=== PATIENT | female | born 1995 | race African-American/Black ===

== ENCOUNTER 2022-09-01 09:45 | Outpatient (CLI) | payer BC, SELFPAY ==
--- NOTE | ~2022-09-01 | US_ITS ---
Pelvic ultrasound. Clinical History: IUD placement Technique: Realtime transabdominal and transvaginal scanning of the pelvis was performed. Color flow Doppler and Doppler spectral analysis were performed. Findings: The uterus is retroverted. The endometrial stripe has a thickness of 5 mm. IUD in satisfac tory position. No focal mass is identified. The right ovary measures 3.2 x 1.8 x 1.9 cm. No significant right ovarian or adnexal mass is seen. The left ovary measures 2.9 x 2.2 x 3.2 cm. No significant left ovarian or adnexal mass is seen. Vascular flow present in both ovaries on Doppler spectral analysis. There is no evidence of free fluid in the cul de sac. Impression: IUD in satisfactory position. Reviewed, dictated and finalized at [facility]. [employer] CLEANER Impression: IUD in satisfactory position.
== END 2022-09-01 09:46 ==
LOC: MICIMG 09:46
PROVIDERS: Visit Provider Student in an Organized Health Care Education/Training Program
DX: Z30.431 Encounter for routine checking of intrauterine contraceptive device (principal)
CPT/HCPCS: 76830; 76856

== ENCOUNTER 2024-08-08 15:38 | Outpatient (CLI) | payer BC, SELFPAY ==
--- NOTE | ~2024-08-08 | US_ITS ---
EXAMINATION: US OB <=14 wk fetus w TV DATE: 08/08/2024 16:56 INDICATION: Amenorrhea, unspecified. TECHNIQUE: Real-time transabdominal and transvaginal pelvic ultrasound was performed. COMPARISON: None. FINDINGS: TRANSABDOMINAL ULTRASOUND: The uterus measures 11.1 x 5.0 x 6.8 cm. TRANSVAGINAL ULTRASOUND: There is an intrauterine gestational sac. A yolk sac is identified. The fet al crown rump length measures 3.3 cm, which correlates with an estimated gestational age of 10 weeks and 1 day(s) (+/-) 6 day(s). heart motion is identified measuring 165 beats per minute (bpm) by M-mode Doppler. The right ovary measures 3.2 x 1.2 x 1.7 cm. The left ovary measures 3.6 x 2.1 x 2.4 cm. There is no free fluid in the pelvis. IMPRESSION: 1. Single living intrauterine gestation with estimated date of delivery of 03/05/2025. Reviewed, dictated and finalized at location A. JOCKEY IMPRESSION: 1. Single living intrauterine gestation with estimated date of delivery of 02/12.
== END 2024-08-08 15:39 | disposition home or self-care (01) ==
LOC: ANHIMG 15:46
PROVIDERS: Visit Provider Nurse Practitioner Obstetrics & Gynecology
DX: N91.2 Amenorrhea, unspecified (principal)
CPT/HCPCS: 76801; 76817

== ENCOUNTER 2025-02-23 08:02 | Outpatient (RCR) | payer BC, SELFPAY ==
[2025-02-15 12:45] VITALS: BP 114/53; PULSE 61
[2025-02-17 09:10] VITALS: BP 112/58; PULSE 77
[2025-02-20 16:14] VITALS: BP 120/67; PULSE 76
--- NOTE | ~2025-02-23 | US_ITS ---
EXAMINATION: US OB limited DATE: 02/20/2025 15:46 INDICATION: Decreased movements. Large for gestational age. TECHNIQUE: Real-time ultrasound of the pelvis was performed. The interpreting radiologist was not pre sent for the study. COMPARISON: None. FINDINGS: There is a single living fetus in breech presentation. The placenta is fundal and not low-lying. Fet al heart rate is 136 beats per minute (bpm). The amniotic fluid index is 6.8 cm, which is below jerilyn l range (5th%-95%: 7.5-24.4 cm at 37 weeks estimated gestational age). IMPRESSION: 1. Single living fetus in breech presentation with heart rate of 136 bpm. 2. No hydronephrosis with decreased amniotic fluid index of 6.8 cm. Reviewed, dictated and finalized at location A. IMPRESSION: 1. Single living fetus in breech presentation with heart rate of 136 bpm . 2. No hydronephrosis with decreased amniotic fluid index of 6.8 cm.
--- NOTE | ~2025-02-23 | US_ITS ---
EXAMINATION: US OB BPP wo non-stress DATE: 02/17/2025 10:06 INDICATION: Bradycardia TECHNIQUE: Real-time pelvic ultrasound was performed. The interpreting radiologist was not present fo r the study. COMPARISON: None. FINDINGS: There is a single living fetus in breech presentation. The placenta is left fundal and not low-lying . heart rate is 134 beats per minute (bpm). Amniotic fluid index of 5.4 cm which is below jerilyn l range (5th%-95%: 7.5-24.4 cm at 37 weeks estimated gestational age). Biophysical profile performed by the technologist: breathing (30 sec sustained breathing in 30 minutes): 2 out of 2 movement (3 gross body movements in 30 minutes): 2 out of 2 tone (one episode of lbabztu-rmtixdxmk-dtycksf limb movement): 2 out of 2 Amniotic fluid pocket (2 cm): 2 out of 2 Total score: 8 out of 8 IMPRESSION: 1. Single living fetus in breech presentation with heart rate of 134 bpm. 2. Biophysical profile 8 out of 8. 3. Oligohydramnios with decreased amniotic fluid index of 5.4 cm. Reviewed, dictated and finalized at location A.
--- NOTE | ~2025-02-23 | US_ITS ---
EXAMINATION: US OB BPP wo non-stress DATE: 02/15/2025 13:46 CDT INDICATION: Decreased movements TECHNIQUE: Real-time transabdominal obstetric ultrasound. FINDINGS: Comparison to ultrasound dated 08/08/2020 There is a single living fetus in breech presentation. The placenta is fundal without placenta previ a. cardiac activity and movement is noted with a heart rate of 123 beats per minute. Biophysical profile: breathin of 2 movement: 2 of 2 tone: 2 of 2 Amniotic flud pocket: 2 of 2 Total score: 6 of 8 IMPRESSION: 1. Single living intrauterine in vertex presentation. 2: Total biophysical profile score of 6/8. Reviewed, dictated and finalized at location A.
--- NOTE | ~2025-02-23 | US_ITS ---
EXAMINATION: US OB limited DATE: 02/23/2025 09:08 INDICATION: Oligohydramnios. Assess amniotic fluid index. TECHNIQUE: Real-time ultrasound of the pelvis was performed. The interpreting radiologist was not pre sent for the study. COMPARISON: None. FINDINGS: There is a single living fetus in breech presentation. The placenta is fundal. heart rate is 1 32 beats per minute (bpm). The amniotic fluid index is 7.3 cm, which is normal (5th%-95%: 7.5-24.4 cm at 37 weeks estimated gestational age). IMPRESSION: 1. Single living fetus in breech presentation with heart rate of 132 bpm. 2. Normal amniotic fluid index of 7.3 cm. Reviewed, dictated and finalized at location A. IMPRESSION: 1. Single living fetus in breech presentation with heart rate of 132 bpm . 2. Normal amniotic fluid index of 7.3 cm.
[2025-02-23 09:48] VITALS: BP 116/67; PULSE 79
== END 2025-03-17 09:51 | disposition other institution (70) ==
LOC: ANHOBOP 08:02
PROVIDERS: Visit Provider Obstetrics & Gynecology
DX: O36.8130 Decreased fetal movements, third trimester, not applicable or unspecified (principal); Z3A.36 36 weeks gestation of pregnancy
CPT/HCPCS: 59025; 76815; 76819

== ENCOUNTER 2025-03-07 05:27 | Inpatient (IN) | payer BC, SELFPAY ==
[2025-03-07] VITALS (61 sets, daily range): BP systolic 82–126; BP diastolic 52–83; PULSE 46–92; RESP 14–18; TEMP 36.4–36.5; O2SAT 97–100; BMI 37.8
[2025-03-07] MEDS: LACTATED RINGERS 1,000 ML 125 ML IV CONT ×2 (05:47→06:50)
[2025-03-07] MEDS: ACETAMINOPHEN 500 MG TABLET 1000 MG PO ×2 (05:52→18:54)
--- NOTE | 2025-03-07 05:57 | LDADM ---
This patient, Harvey Levine, was admitted to Labor/Delivery/Recovery 120 on 03/07/25 at 05:27. Plans for labor, pain management and were discussed with patient. Patient/family oriented to hospital policies and general routines including ID bracelet, bed and alarms, visiting hours, pain management, procedures, bathroom and other care routines, personal items, smoking policy, room service/diet and guest tray routines, infant security routines, and visiting hours. Patient/Family are encouraged to report perceived risks to care and to ask questions if they do not understand what they are told or what they should do. See OBIX for further documentation.
[2025-03-07 06:00] LABS: Basophils Absolute Auto 0.1 K/mm3 (0.0-0.1); Basophils Percent Auto 0.9 % (0.2-1.2); Eosinophils Absolute Auto 0.2 K/mm3 (0-0.3); Eosinophils Percent Auto 3.2 % (0-4.4); Hemoglobin 10.9 g/dL (12.0-15.0); Immature Granulocyte Absolute 0.03 K/mm3 (0.00-0.031); Immature Granulocyte Percent A 0.4 % (0-0.5); Lymphocytes Absolute Auto 1.75 K/mm3 (0.9-3.2); Lymphocytes Percent Auto 25.1 % (18.3-44.2); Mean Corpuscular Hemoglobin 27.6 pg (26-34); Mean Corpuscular Volume 83.5 fl (80-100); Mean Platelet Volume 11.7 fl (7.4-10.4); Monocytes Absolute Auto 0.8 K/mm3 (0.1-0.6); Monocytes Percent Auto 11.3 % (2.6-8.5); Neutrophils Absolute Auto 4.1 K/mm3 (1.3-6.7); Neutrophils Percent Auto 59.1 % (45.5-73.1); Platelet Count Result 200 k/mm3 (150-375); Red Blood Count 3.95 M/mm3 (4.2-5.4); Red Cell Distribution Width 15.2 % (11.5-14.5)
[2025-03-07 06:45] LABS: Syphilis IgG/IgM Antibody Non-Reactive (Nonreactive)
[2025-03-07 06:54] LABS: HIV 1/2 Ab P24 Ag Result Negative (Negative)
--- NOTE | 2025-03-07 07:04 | P.PNAN_ITS ---
Anes - Initial Pre Proc Eval Procedure: Operation Date: 03/07/25 07:30 Proposed Procedures p Repeat Section - Jose Jurado MD Date/Time: 03/07/25 07:04 Surgeon: Jose Jurado MD Pre Op Diagnosis: Patient Data Age: 30 Gender: F Height: 1.55 m Weight: 90.9 kg Last Vital Signs Temp 36.5 C 03/07/25 06:00 Pulse 69 03/07/25 07:01 BP 108/59 L 03/07/25 07:01 Pulse Ox 99 03/07/25 07:01 O2 Del Method Room Air 03/07/25 05:57 Allergies Allergy/AdvReac Type Severity Reaction Status Date / Time No Known Allergies Allergy Verified 02/28/25 14:55 Home Medications ?Medication ?Instructions ?Recorded ?Confirmed ?Type vitamin#30 30 mg iron-10 1 cap PO DAILY 07/28/24 03/07/25 History mg iron-folic acid 1 mg-omg3 capsule aspirin 81 mg tablet,delayed 81 mg PO DAILY 11/03/24 03/07/25 History release (Adult Low Dose Aspirin) ferrous sulfate 325 mg (65 mg 325 mg PO DAILY 02/20/25 03/07/25 History iron) tablet Laboratory Tests 03/07/25 05:53 WBC 7.0 K/mm3 (4.5-10.0) RBC 3.95 L M/mm3 (4.2-5.4) Hgb 10.9 L g/dL (12.0-15.0) Hct 33.0 L % (37.0-47.0) MCV 83.5 fl (80-100) MCH 27.6 pg (26-34) MCHC 33.0 g/dl (32-36) RDW 15.2 H % (11.5-14.5) Plt Count 200 k/mm3 (150-375) MPV 11.7 H fl (7.4-10.4) Immature Gran % (Auto) 0.4 % (0-0.5) Neut % (Auto) 59.1 % (45.5-73.1) Lymph % (Auto) 25.1 % (18.3-44.2) Towns % (Auto) 11.3 H % (2.6-8.5) Eos % (Auto) 3.2 % (0-4.4) Baso % (Auto) 0.9 % (0.2-1.2) Lymph # (Auto) 1.75 K/mm3 (0.9-3.2) Towns # (Auto) 0.8 H K/mm3 (0.1-0.6) Eos # (Auto) 0.2 K/mm3 (0-0.3) Baso # (Auto) 0.1 K/mm3 (0.0-0.1) Abs Immat Gran (auto) 0.03 K/mm3 (0.00-0.031) Absolute Neuts (auto) 4.1 K/mm3 (1.3-6.7) Absolute Nucleated RBC 0.000 K/mm3 (0.0-0.012) Nucleated RBC % 0.0 % (0.0-0.2) Syphilis IgG/IgM Ab Non-reactive (Nonreactive) HIV 1&2 Ab/P24 Ag 4thGn Negative (Negative) Blood Type B Positive Antibody Screen Negative Patient hx anesthesia problems: none Family hx anesthesia problems: none Results Review: All pre-operative results and documents have been reviewed as part of the pre- operative evaluation. [facility] Past Medical History Medical History Encounter for Routine Gynecological Examination History of vaginal after Hypertensive disorder Surgical History Surgical History History of section History of appendectomy Family History Family History Grandparent Malignant neoplasm of prostate Social History Social History Smoking status: Never smoker Second hand tobacco smoke exposure: No Alcohol intake: never Substance use: never Substance use type: does not use Do You Feel Safe in your Home?: Yes Lack of Transportation: No Lack of Food: Never True Current Housing: I Have Housing Concerned About Future Housing: No Difficulty Paying Gas/Electric Bills: No Difficulty Paying for Meds: No Currently Unemployed: No Education: Bachelor's Degree Difficulty w/ Childcare or Family Care: No Spiritual care concerns: No Anes - Eval Final PreProcedure Day of Procedure 03/07/25 07:04 Patient weight: obese Heart: regular rate and rhythm Lungs: clear to auscultation and normal air movement Airway: Mallampati scale class II Neurological: alert and oriented Last oral intake: >/= 8 hours ASA classification: II Emergent: no Anesthetic plan: proceed Anesthesia type and monitoring: regional spinal and standard monitoring Results Review: All pre-operative results and documents have been reviewed as part of the pre- operative evaluation. Informed Consent: The patient's anesthetic plan and its attendant risks and benefits were discussed with the patient/family/POA. Questions were solicited and answers provided to the satisfaction of the patient/family/POA.
[2025-03-07] MEDS: ONDANSETRON INJ 4 MG/2 ML VIAL IV PUSH (07:14)
[2025-03-07] MEDS: FAMOTIDINE 20 MG/2 ML VIAL IV PUSH (07:14)
[2025-03-07] MEDS: ceFAZolin 2 GM/D5W 50 ML 2 GM/50 ML BAG IVPB (07:15)
--- NOTE | 2025-03-07 08:01 | P.HP_ITS ---
H&P: HPI History of Present Illness Date/Time: 03/07/25 08:01 Chief Complaint: Repeat section Narrative: 30 y/o at 39 4/7 admitted for scheduled repeat section. PNC significant for persistent breech presentation. Ultrasound at bedside today confirmed breech. Also LGA. Review of Systems Review of Systems: All systems reviewed & are unremarkable except as noted in HPI and below Constitutional: Constitutional: Reports no additional constitutional complai nts and Denies headache(s) Eyes: Eyes: Denies spots in vision ENT: Reports system reviewed and no additional complaints, except as documented and Denies headache(s) Cardiovascular: Cardiovascular: Denies chest pain and Denies dyspnea Respiratory: Respiratory: Denies dyspnea Gastrointestinal: Gastrointestinal: Reports no additional gastrointestinal complaints Genitourinary: Genitourinary: Reports amenorrhea Musculoskeletal: Musculoskeletal: Reports no additional musculoskeletal complaints Integumentary/Breasts: Skin/Breast: Denies breast mass and Denies rash Neurologic: Denies headache(s) Psychiatric: Psychiatric: Reports no additional psychiatric complaints PMFSH Past Medical History Medical History Encounter for Routine Gynecological Examination History of vaginal after Hypertensive disorder Surgical History Surgical History History of section History of appendectomy Family History Family History Grandparent Malignant neoplasm of prostate Social History Social History Smoking status: Never smoker Second hand tobacco smoke exposure: No Alcohol intake: never Substance use: never Substance use type: does not use Do You Feel Safe in your Home?: Yes Lack of Transportation: No Lack of Food: Never True Current Housing: I Have Housing Concerned About Future Housing: No Difficulty Paying Gas/Electric Bills: No Difficulty Paying for Meds: No Currently Unemployed: No Education: Bachelor's Degree Difficulty w/ Childcare or Family Care: No Spiritual care concerns: No Meds Home Medications and Allergies Home Medications ?Medication ?Instructions ?Recorded ?Confirmed ?Type vitamin#30 30 mg iron-10 1 cap PO DAILY 07/28/24 03/07/25 History mg iron-folic acid 1 mg-omg3 capsule aspirin 81 mg tablet,delayed 81 mg PO DAILY 11/03/24 03/07/25 History release (Adult Low Dose Aspirin) ferrous sulfate 325 mg (65 mg 325 mg PO DAILY 02/20/25 03/07/25 History iron) tablet Allergies Allergy/AdvReac Type Severity Reaction Status Date / Time No Known Allergies Allergy Verified 02/28/25 14:55 Vital Signs Vital Signs - 24 hr 03/07/25 05:56 03/07/25 05:57 03/07/25 06:00 Temperature 97.7 F Pulse Rate 71 68 Blood Pressure 119/60 115/71 Pulse Oximetry 99 Oxygen Delivery Room Air 03/07/25 06:01 03/07/25 06:06 03/07/25 06:07 Temperature Pulse Rate Blood Pressure Pulse Oximetry 99 99 98 Oxygen Delivery 03/07/25 06:12 03/07/25 06:16 03/07/25 06:17 Temperature Pulse Rate 71 Blood Pressure 119/63 Pulse Oximetry 99 99 Oxygen Delivery 03/07/25 06:22 03/07/25 06:27 03/07/25 06:30 Temperature Pulse Rate 63 Blood Pressure 121/72 Pulse Oximetry 100 99 Oxygen Delivery 03/07/25 06:32 03/07/25 06:46 03/07/25 06:51 Temperature Pulse Rate Blood Pressure Pulse Oximetry 99 100 99 Oxygen Delivery 03/07/25 06:56 03/07/25 07:01 03/07/25 07:06 Temperature Pulse Rate 69 Blood Pressure 108/59 L Pulse Oximetry 99 99 99 Oxygen Delivery 03/07/25 07:11 03/07/25 07:16 03/07/25 07:21 Temperature Pulse Rate Blood Pressure Pulse Oximetry 99 100 99 Oxygen Delivery 03/07/25 07:26 03/07/25 07:30 03/07/25 07:31 Temperature Pulse Rate 73 Blood Pressure 114/63 Pulse Oximetry 99 99 Oxygen Delivery 03/07/25 07:36 Temperature Pulse Rate Blood Pressure Pulse Oximetry 99 Oxygen Delivery Exam Const: General: no acute distress Eyes: General: appearance normal, both eyes and all related structures Resp: Effort & Inspection: normal respiratory effort Cardio: Rate: regular rate GI: Other: Gravid no fundal tenderness no right upper quadrant pain Skin: General skin exam: no rashes or lesions noted Neuro: Cognition (Neuro): normal cognition Extrem: General: normal to inspection Psych: Mental Status: mental status grossly normal H&P: Results Labs Labs: Short CBC 03/07/25 Range/Units 05:53 WBC 7.0 (4.5-10.0) K/mm3 Hgb 10.9 L (12.0-15.0) g/dL Hct 33.0 L (37.0-47.0) % Plt Count 200 (150-375) k/mm3 Assessment and Plan Assessment and plan (1) Previous section: Code(s): Z98.891 - History of uterine scar from previous surgery Status: Acute Assessment and Plan: She has been counseled regarding risk benefit of repeat section for breech with prior . Questions have been answered. She agrees with repeat section. (2) Breech presentation: Code(s): O32.1XX0 - Maternal care for breech presentation, not applicable or unspecified Status: Acute
--- NOTE | 2025-03-07 08:01 | WPDHPUPDATE1 ---
History and Physical Update Update Date/Time: 03/07/25 08:01 History and Physical has been reviewed, including an updated exam of the patient. There are NO changes in the patient's condition. Risks, benefits, and alternatives have been discussed and questions answered. Patient agrees to proceed with procedure.
[2025-03-07] MEDS: OXYTOCIN 30 UNITS/NS 500 ML 30 UNITS/500 ML BAG 125 UNITS IV CONT (11:30)
--- NOTE | 2025-03-07 12:10 | OBPPTRN ---
Patient transferred to post room # 290 via stretcher. Support person present. Oriented to unit, room, information board, rooming in, admission packet and security measures. Patient verbalizes understanding.
[2025-03-07] MEDS: KETOROLAC 15 MG/ML VIAL (*BKC) IV PUSH ×2 (12:52→18:54)
[2025-03-07] MEDS: SIMETHICONE 80 MG TAB.CHEW PO ×2 (12:53→16:40)
[2025-03-07] MEDS: ACETAMINOPHEN 500 MG TABLET 1000 MG (12:54)
[2025-03-07 15:12] LABS: Alanine Aminotransferase 22 U/L (6-35); Albumin Level 3.7 g/dL (3.5-5.1); Alkaline Phosphatase 233 U/L (38-126); Anion Gap 9 mmol/L (4-12); Aspartate Amino Transferase 28 U/L (14-36); Bilirubin,Total 0.3 mg/dL (0.2-1.3); Blood Urea Nitrogen 6 mg/dL (7-17); Calcium 9.2 mg/dL (8.4-10.2); Carbon Dioxide 19 mmol/L (22-30); Chloride 107 mmol/L (98-107); Estimated CRCL calculation 112 ml/min; Estimated Glomerular Filt Rate > 60; Glucose 87 mg/dL (65-110); Potassium 4.1 mmol/L (3.4-5.0); Sodium 135 mmol/L (137-145); Total Protein 7.6 g/dL (6.3-8.2)
[2025-03-07 15:45] LABS: Rubella IgG Antibody 30.4 IU/ML
--- NOTE | 2025-03-07 16:06 | P.PCNOB_ITS ---
OB - Delivery Note Procedure Delivery date: 03/07/25 Pre-op diagnosis: Breech Presentation and Previous Delivery Post-op Diagnosis: Same Delivery monitor: External FHT Prior to decision for section, ACOG/SMFM labor guidelines were considered and discussed with the patient and staff. Decision made to proceed with the section.: Yes Procedure Performed: Repeat Surgeon: Jose Jurado MD Anesthesia type: Spinal Description of Procedure/Findings: Nicho breech position male , meconium-stained fluid, terminal meconium. Normal uterus fallopian tubes and ovaries. After informed consent, risks and benefits of the procedure was discussed with the patient. The patient was taken to the operating room where she was placed in the dorsal lithotomy position with leftward tilt. Spinal anesthesia was initiated and found to be adequate, she was then prepped and draped in the usual sterile fashion. A Pfannenstiel skin incision was made along prior scar with a scalpel and carried through to the underlying layer of fascia. The fascia was then nicked in the midline, extending bilaterally. The fascia was dissected off the rectus muscles bluntly and sharply, superiorly and inferiorly. The rectus muscles were in the midline, and peritoneum was identified and entered bluntly. The pelvic organs were visualized. The bladder blade was then inserted. The vesicouterine peritoneum was identified and noted to be well below the incision area. The low transverse uterine incision was then made with the scalpel , amniotic sac was entered meconium fluid noted, the incision was then extended with bilateral index fingers in a crescent-shaped fashion. The buttocks was delivered, terminal meconium noted, the legs were flexed and delivered, flexed and delivered, and the head was delivered in a flexed position. The nose and mouth suctioned. The cord was clamped twice and cut. The infant was then handed off to the awaiting pediatric staff. The placenta was then delivered manually. The uterine cavity was sponge curretted. The uterus was then exteriorized. The uterine incision was then closed with 0 vicryl in a running locked fashion. A figure of eight of 0 vicryl at the right of incision was used for hemostasis. Hemostasis noted. A second layer of [id number] of 0 vicryl was used. hemostasis noted. The posterior cul-de-sac was irrigated debris was removed. The uterus was then returned to the abdomen. Bilateral gutters were cleared off all clots and debris. The uterine incision was noted to be hemostatic. Interceed placed on uterine incision and vertically on front of uterus. The muscle bellies were inspected and noted to be hemostatic. The subfascial layer was noted to be hemostatic, and the fascia was closed with 0 Vicryl x2 in a running fashion. The subcutaneous layer was then Approximated with 3-0 Vicryl in a subcutaneous fashion. The skin was closed with 4-0 Vicryl in a subcuticular fashion with a Keif needle. Skin dermabond applied at incision. All instruments, needle, and lap counts were correct x3. The patient was taken to the recovery room in stable condition. Specimen: No Estimated Blood Loss: 580 Drains: No Packing: No Pathology: None sent Complications: No immediate complications Condition: Stable Disposition: Floor [place] Baby Date of : 03/07/25 Time of : 08:32 Gestational Age by Date: 39 Infant gender: Male Weight (pounds): 7 Weight (ounces): 10 presentation: nicho breech Placenta delivery description: Manual Removal Cord Vessel Description: 3 Vessels
[2025-03-07] MEDS: POLYSACCHARIDE IRON COMPLEX 150 MG CAPSULE PO (16:40)
[2025-03-07] MEDS: DOCUSATE SODIUM 100 MG CAPSULE PO (16:40)
[2025-03-07] MEDS: DEXTROSE 5%/0.45% SOD CHL 1,000 ML 125 ML IV CONT (16:41)
--- NOTE | 2025-03-07 17:20 | PC.NURSE ---
Breast pump provided due to in level 2 nursery. Instructions given on cleaning, care, usage, that there should be no pain, pumping schedule for milk production, collection, and storage of human milk. Patient was assessed for correct placement, flange size, to pump for comfort and nipple stretching/stimulation for adequate milk production every 3 hours (8 times in 24 hours) 1-2 times at night. Parents are encouraged to record the pumping schedule on the feeding sheet.?Mother voiced understanding of the education shared along with mom/baby guide and the pump measurement, flange fit handout for additional resource information. Reported to the Primary RN.
[2025-03-08] VITALS: BP 135/53; PULSE 68; RESP 16; TEMP 36.5; O2SAT 100
[2025-03-08] MEDS: ACETAMINOPHEN 500 MG TABLET 1000 MG PO ×4 (00:59→19:42)
[2025-03-08] MEDS: KETOROLAC 15 MG/ML VIAL (*BKC) IV PUSH ×2 (00:59→07:40)
[2025-03-08] MEDS: LACTATED RINGERS 1,000 ML 125 ML IV CONT (01:06)
[2025-03-08 04:00] VITALS: BP 109/51; PULSE 72; RESP 18; TEMP 36.6; O2SAT 100
[2025-03-08 05:36] LABS: Basophils Percent Auto 0.5 % (0.2-1.2); Eosinophils Absolute Auto 0.2 K/mm3 (0-0.3); Eosinophils Percent Auto 2.5 % (0-4.4); Hemoglobin 9.1 g/dL (12.0-15.0); Immature Granulocyte Absolute 0.03 K/mm3 (0.00-0.031); Immature Granulocyte Percent A 0.5 % (0-0.5); Lymphocytes Absolute Auto 1.08 K/mm3 (0.9-3.2); Lymphocytes Percent Auto 16.6 % (18.3-44.2); Mean Corpuscular HGB Conc 32.5 g/dl (32-36); Mean Corpuscular Hemoglobin 27.7 pg (26-34); Mean Corpuscular Volume 85.1 fl (80-100); Mean Platelet Volume 12.4 fl (7.4-10.4); Monocytes Absolute Auto 0.6 K/mm3 (0.1-0.6); Monocytes Percent Auto 9.1 % (2.6-8.5); Neutrophils Absolute Auto 4.6 K/mm3 (1.3-6.7); Neutrophils Percent Auto 70.8 % (45.5-73.1); Platelet Count Result 161 k/mm3 (150-375); Red Blood Count 3.29 M/mm3 (4.2-5.4); Red Cell Distribution Width 15.5 % (11.5-14.5); White Blood Count 6.5 K/mm3 (4.5-10.0)
[2025-03-08] MEDS: MULTIVIT/MIN/PREN/FOL AC/IRON TABLET 1 TAB PO (07:39)
[2025-03-08] MEDS: DOCUSATE SODIUM 100 MG CAPSULE PO ×2 (07:40→19:43)
[2025-03-08] MEDS: SIMETHICONE 80 MG TAB.CHEW PO ×3 (07:40→19:43)
[2025-03-08] MEDS: POLYSACCHARIDE IRON COMPLEX 150 MG CAPSULE PO ×2 (07:40→19:42)
[2025-03-08 08:55] VITALS: BP 124/70; PULSE 66; RESP 18; TEMP 36.6; O2SAT 100
[2025-03-08] MEDS: IBUPROFEN 600 MG TABLET PO ×2 (13:25→19:42)
--- NOTE | 2025-03-08 13:43 | PC.NURSE ---
Pt out at this time to visit at [facility] to visit for 6 hour pass.
--- NOTE | 2025-03-08 14:03 | WPDANLDPN2 ---
Anes-Prog Note L&D Date/Time: 03/08/25 14:03 Comfortable throughout: section Neuraxial method: spinal Epidural/Spinal procedure site: clean & non-tender Neuro status: Neuro function grossly intact. Cardiovascular status: normal Respiratory status: normal Airway patency: baseline Mental status: baseline Post-Op hydration status: normal Vital Signs: Last Vital Signs Temp 97.8 F 03/08/25 08:55 Pulse 66 03/08/25 08:55 Resp 18 03/08/25 08:55 BP 124/70 03/08/25 08:55 Pulse Ox 100 03/08/25 08:55 O2 Del Method Room Air 03/07/25 05:57 Pain score (VAS): 0/10 I/O: Intake & Output 03/07/25 03/08/25 03/08/25 23:59 07:59 15:59 Intake Total 400 1100 240 Output Total 300 2000 Balance 100 -900 240 Post-procedural complaints: none Patient feedback: Patient satisfied with anesthetic care.
--- NOTE | 2025-03-08 14:03 | WPDANLDNPN2 ---
Anes-Prog Note L&D-Neuraxial Date/Time: 03/08/25 14:03 Neuraxial medications: intrathecal PF morphine Opiod-related complaints: none Patient feedback: Patient satisfied with post-operative pain management.
[2025-03-08 20:00] VITALS: BP 127/72; PULSE 82; RESP 18; TEMP 36.7; O2SAT 99
[2025-03-09] MEDS: ACETAMINOPHEN 500 MG TABLET 1000 MG PO ×2 (01:36→08:06)
[2025-03-09] MEDS: IBUPROFEN 600 MG TABLET PO ×2 (01:36→08:07)
[2025-03-09 07:30] VITALS: BP 116/48; PULSE 63; RESP 16; TEMP 36.9; O2SAT 98
[2025-03-09] MEDS: TETANUS,DIPHTHERIA,AC PERTUSSIS ADULT (0.5 ML) BOOSTRIX IM (08:03)
[2025-03-09] MEDS: POLYSACCHARIDE IRON COMPLEX 150 MG CAPSULE PO (08:07)
[2025-03-09] MEDS: DOCUSATE SODIUM 100 MG CAPSULE PO (08:08)
[2025-03-09] MEDS: SIMETHICONE 80 MG TAB.CHEW PO (08:08)
[2025-03-09] MEDS: MULTIVIT/MIN/PREN/FOL AC/IRON TABLET 1 TAB PO (08:08)
--- NOTE | 2025-03-09 08:50 | P.PNOB_ITS ---
OB - PN: Subj Subjective Date/time seen: 03/08/25 08:15 Interval history: Pain controlled, lochia decreasing this am, tolerated regular diet, positive flatus, ambulating well, denies leg pain. OB - PN: Obj Data Labs 03/08/25 04:40 03/07/25 05:53 OB - PN A/P Assessment and Plan (1) Delivery by section: Status: Acute Assessment and Plan: POD1. Doing well. Baby transferred to [facility] doing well. Offered pass. Routine post op care. Plan Plan: routine care Time Spent With Patient Time: Total time spent is greater than 50% in coordination of care (as documented) at patient's floor/unit and/or counseling patient: Exam 2 Const: General: comfortable and no acute distress Resp: Effort & Inspection: normal respiratory effort : Other: dressing removed, incision intact no drainage Neuro: General: patient oriented x3 Extrem: General: normal to inspection, no calf tenderness and no edema Psych: Mental Status: mental status grossly normal
--- NOTE | 2025-03-09 08:53 | P.PNOB_ITS ---
OB - PN: Subj Subjective Date/time seen: 03/09/25 08:53 Interval history: Doing well, no complaints, did fine on pass to [facility] yesterday. No leg pain. Lochia decreasing. OB - PN: Obj Data Labs 03/08/25 04:40 03/07/25 05:53 OB - PN A/P Assessment and Plan (1) Delivery by section: Status: Acute Assessment and Plan: POD2. Doing well. Baby doing well. May be discharged tomorrow. She is considering discharge today. Routine post op care. Plan Plan: routine care Time Spent With Patient Time: Total time spent is greater than 50% in coordination of care (as documented) at patient's floor/unit and/or counseling patient: Exam 2 Const: General: comfortable and no acute distress Resp: Effort & Inspection: normal respiratory effort : Other: fundus firm -3 umb appropriate tender, incision intact no drainage Neuro: General: patient oriented x3 Extrem: General: normal to inspection, no calf tenderness and no edema Psych: Mental Status: mental status grossly normal
--- NOTE | 2025-03-09 08:56 | PM.OBDSVD ---
DS: Admitting Diagnosis Discharge Date 03/09/2025 Admitting Diagnosis Breech presentation Elective repeat section. DS: Discharge Diagnosis Discharge Diagnosis (1) Delivery by section: Status: Acute (2) Breech presentation: Code(s): O32.1XX0 - Maternal care for breech presentation, not applicable or unspecified Status: Acute OB - DS: Summary Hospital Course Hospital Course: She was admitted for planned repeat section due to persistent breech presentation. She had an uncomplicated section. She did well . Baby was transferred to [facility] on day of surgery. She was doing well on day 1, she was tolerating regular diet, ambulating without problems, positive flatus, adequate pain control with motrin and Tyleno. She did well on pass to see baby. She was doing well on postop day 2. Deciding on discharge on day 2. OB Procedures : Ultrasound OB Procedures Intrapartum: OB Procedures: : None Peripartum Data Delivery Method: Section Procedures: Procedures Operation Date: 03/07/25 07:30 Actual Procedure Side Surgeon p Repeat Section Jose Jurado MD complications: none Status at Discharge Functional status at discharge: independent ambulation Time Spent with Patient Time attestation: Total time spent providing and/or coordinating discharge services: Exam Const: General: cooperative Orientation/consciousness: oriented to person, oriented to place and oriented to time HENMT: Face/Nose/Sinus: Normal external nose present Eyes: General: appearance normal, both eyes and all related structures Resp: Effort & Inspection: normal respiratory effort GI: Inspection: normal to inspection Other: incision intact no drainage Skin: General skin exam: normal color Neuro: General: oriented to person, oriented to place and oriented to time Extrem: General: normal to inspection and no calf tenderness Psych: Appearance: grossly normal Discharge Plan Discharge Attending physician on discharge: Jose Jurado Consulting providers: Kalia Wells; Heri Wong Jr. Discharging Clinician: Jose Jurado Patient Disposition: Home Activity: may shower, no straining, may drive after 2 weeks and pelvic rest Diet: regular Discharge Instructions: Education: Mom and Baby Guide Given to: Mother Follow-Up: Call your delivering provider's office for an appointment to be seen in: 1 Week Mom and baby should come to the [facility] for the follow-up appointment. Appointment Date/Time: March 10, 2025 at 8:00 am What to expect at your follow-up visit: Physical Assessment Call [phone] if you are unable to keep your appointment time. BREAST CARE: * Wear a snug supportive bra. * For engorgement discomfort: Breast Feeding: * Apply warm moist washcloths * Express milk as needed to relieve engorgement * Wear loose clothing * For sore nipples: * Identify correct latch-on * Apply warm moist washcloths before and after nursing * Air dry nipples after nursing * May apply Lansinoh cream to nipples ABDOMINAL INCISION: (if applicable) * Allow incision to air dry * Do NOT use lotions for powders on your incision * When showering, allow soap and water to run over the incision, but do not wash incision EPISIOTOMY/PERINEAL CARE: * Until bleeding stops, use your jean carlos bottle after urinating * Change your pad frequently throughout the day * No tub baths until seen by your physician - You may shower ACTIVITY: * Rest as much as possible. * Do not exercise or lift anything heavier than your baby (such as laundry or other children.) * Avoid stairs or driving as much as possible. * Do not put anything into the vagina. No douching, tampons, or sexual activity until seen by physician. NOTIFY PHYSICIAN IF YOU HAVE ANY QUESTIONS OR IF ANY OF THE FOLLOWING SYMPTOMS OCCUR: * If your incision becomes red, swollen, or more painful than what you have experienced in the hospital. * If your vaginal bleeding becomes foul smelling. * If your vaginal bleeding becomes more heavy than a period or if your bleeding changes from pink to bright red. However, you may pass an occasional walnut-sized clot once or twice for the first week . * If you experience a sharp, shooting pain in you calves. * If you discover a hard, reddened area on your breast or if you experience flu-like symptoms. DIET: * Eat regular, well-balanced meals. * Drink plenty of fluids daily. If , drink to thirst. Patient Language: Thai Stand Alone Forms: General Discharge Information Follow-up/Referrals: Jose Jurado MD [Physician] - Call for Appointment (two weeks) Discharge Medications: New polysaccharide iron complex 150 mg iron Capsule 150 mg PO BIDWM Qty: 30 0RF ibuprofen 600 mg Tablet 600 mg PO Q6HR Qty: 30 0RF oxycodone 5 mg Tablet 5 mg PO Q4H PRN (Reason: Pain Rated 4-6) Qty: 15 0RF Continued ferrous sulfate 325 mg (65 mg iron) tablet 325 mg PO DAILY PNV #[id number] 30 mg iron-10 mg iron-1 mg capsule 1 cap PO DAILY Discontinued aspirin [Adult Low Dose Aspirin] 81 mg tablet,delayed release (DR/EC) 81 mg PO DAILY Date of admission: 03/07/25 05:27 Primary Care Provider: UNKNOWN,DOCTOR Admitting Provider: Jose Jurado Attending physician on admission: Jose Jurado Condition: Stable
--- NOTE | 2025-03-09 09:55 | PC.NURSE ---
Introductions were made, then consulted with patient to assess needs related to . Patient's had been transferred to a NICU and she is using the breast pump consistently and is getting up to 2 oz. per breast with each pumping session, no pain with pumping. Per patient she has her own breast pump at home that she received through her insurance. Resources provided for inpatient and outpatient services with the feeding sheet, mom/baby guide and name written on the communication board. Mother voiced understanding of information and will call if there is a request for assistance. Reported to the Primary RN.
--- NOTE | 2025-03-09 11:27 | PC.NURSE ---
Spoke with mother, infant is being discharged from the NICU today, reinforced understanding of milk production, transition of milk, signs of adequate intake, transition of stool, prevention/relief of engorgement, plugged ducts, mastitis, community resources, and when to call a provider using the resource of the feeding sheet along with the mom and baby guide. Mother voiced understanding of the information shared, when to call for assistance, denies any additional assistance or education at this time. Advice for Common Issues and Is the Baby Getting Enough Milk handouts were given to mother. Reported to the Primary RN.
[2025-03-10 08:12] VITALS: BP 119/66; PULSE 70; RESP 18; TEMP 36.6; O2SAT 99
== END 2025-03-09 14:48 | disposition home or self-care (01) | DRG 788 ==
LOC: ANHLDR 05:30 → ANHOB2 12:40
PROVIDERS: Admitting Provider Obstetrics & Gynecology; Visit Provider Obstetrics & Gynecology
PROC: 10D00Z1 Extraction of Products of Conception, Low, Open Approach (ICD-10-PCS; CPT 59514; principal; 2025-03-07 07:30)
DX: O34.211 Maternal care for low transverse scar from previous cesarean delivery (principal); O32.1XX0 Maternal care for breech presentation, not applicable or unspecified; Z37.0 Single live birth; Z3A.39 39 weeks gestation of pregnancy; O99.824 Streptococcus B carrier state complicating childbirth; O77.0 Labor and delivery complicated by meconium in amniotic fluid; O36.63X0 Maternal care for excessive fetal growth, third trimester, not applicable or unspecified
CPT/HCPCS: 36415; 80053; 85025; 86593; 86703; 86762; 86850; 86900; 86901; 90715; A9270; G0432; J0690; J1885; J2274; J2371; J2405; J2590; J7120